=== PATIENT | male | born 1950 | race Caucasian/White ===

== ENCOUNTER 2024-10-28 06:17 | Day surgery (SDC) | payer OTHER ==
[2024-10-23 14:50] VITALS: BMI 26.6
[2024-10-28] MEDS ORDERED: PROPOFOL 40 ML ONE (08:44)
[2024-10-28] MEDS ORDERED: Lidocaine 1% PF 5 ML VIAL ONE (08:44)
[2024-10-28] MEDS ORDERED: PROPOFOL 20 ML ONE (09:03)
[2024-10-28] MEDS ORDERED: Glycopyrrolate 0.2 MG/ML 5 ML SYRINGE ONE (09:16)
== END 2024-10-28 10:45 | disposition home or self-care (01) ==
LOC: CSHSDC 06:17
PROVIDERS: ATTEND Surgery
DX: Z12.11 Encounter for screening for malignant neoplasm of colon (principal); D12.2 Benign neoplasm of ascending colon; D12.3 Benign neoplasm of transverse colon; D12.5 Benign neoplasm of sigmoid colon; K63.5 Polyp of colon; K57.30 Diverticulosis of large intestine without perforation or abscess without bleeding; I10 Essential (primary) hypertension; I25.10 Atherosclerotic heart disease of native coronary artery without angina pectoris; E11.9 Type 2 diabetes mellitus without complications; E78.2 Mixed hyperlipidemia; Z86.0101 Personal history of adenomatous and serrated colon polyps; Z80.0 Family history of malignant neoplasm of digestive organs; Z95.1 Presence of aortocoronary bypass graft; Z87.891 Personal history of nicotine dependence; Z79.82 Long term (current) use of aspirin; Z79.84 Long term (current) use of oral hypoglycemic drugs; Z79.899 Other long term (current) drug therapy
CPT/HCPCS: 45380; 45385; J2704; 88305